=== PATIENT | male | born 1930 | race Caucasian/White ===

== ENCOUNTER → 2016-08-02 | Outpatient (CLI) | payer MEDICARE, OTHER | LOC: LAB 10:05 | PROVIDERS: ATTEND Urology | DX: C61 Malignant neoplasm of prostate (principal); R33.9 Retention of urine, unspecified | CPT/HCPCS: 36415; 84153 ==

== ENCOUNTER 2016-09-08 07:39 | Inpatient (IN) | payer MEDICARE, OTHER ==
[2016-09-08] VITALS (38 sets, daily range): BP systolic 39–97; BP diastolic 30–53
[~2016-09-08] VITALS: Ht 177.8 cm; Wt 92.0 kg
[2016-09-08] MEDS ORDERED: HYDROmorphone 1 MG/ML (DILAUDID) SYRINGE IM ONE (08:10)
[2016-09-08] MEDS ORDERED: LIDOCAINE JELLY 2% (XYLOCAINE) 30 ML TUBE TOP ONE (08:10)
[2016-09-08] MEDS ORDERED: PROMETHAZINE 25 MG/ML (PHENERGAN) 1 ML VIAL IM ONE (08:10)
[2016-09-08 09:34] LABS: MEAN CORPUSCULAR VOLUME 91 FL (80-100); MEAN PLATELET VOLUME 8.3 FL (6.0-9.5); PLATELET COUNT 104 10^3uL (150-450)
[2016-09-08 09:46] LABS: ANION GAP 16.5 MEQ/L (3-15); CALCULATED IONIZED CALCIUM 4.6 mg/dL (3.8-4.6); TOTAL PROTEIN 7.2 g/dL (6.4-8.5)
[2016-09-08 09:51] LABS: WHITE BLOOD COUNT 0.81 10^3uL (4.0-11.0)
[2016-09-08 09:52] LABS: BAND NEUTROPHILS % 11 % (0-6); EOSINOPHILS % 0 % (0-4); LYMPHOCYTES # 0.1 #; MONOCYTES % 2 % (3-11); RBC MORPH NORMAL (NORMAL); SEGMENTED NEUTROPHILS % 70 % (51-67); TOTAL CELLS COUNTED 100
[2016-09-08] MEDS ORDERED: NS IV 500 ML 500 ML IV SCH (12:20)
[2016-09-08] MEDS ORDERED: SODIUM CHLORIDE FLUSH 10 ML SYR IV PRN (12:20)
[2016-09-08] MEDS ORDERED: SODIUM CHLORIDE FLUSH 3 ML SYR IV ONE (12:20)
[2016-09-08 16:32] LABS: MEAN CORPUSCULAR HGB CONC 32.1 g/dL (31.0-37.0); MEAN CORPUSCULAR VOLUME 93 FL (80-100); MEAN PLATELET VOLUME 9.6 FL (6.0-9.5); PLATELET COUNT 109 10^3uL (150-450); WHITE BLOOD COUNT 5.02 10^3uL (4.0-11.0)
[2016-09-08 16:33] LABS: ANION GAP 21.7 MEQ/L (3-15); BUN/CREATININE RATIO 14 (10-20)
[2016-09-08 16:44] LABS: MEAN CORPUSCULAR HEMOGLOBIN 29.8 PG (26.0-34.0)
[2016-09-08] MEDS ORDERED: DEXTROSE 50% 25 GM/50 ML SYRINGE IV ONE (16:45)
[2016-09-08 16:48] LABS: ANISOCYTOSIS SLIGHT; BAND NEUTROPHILS % 16 % (0-6); EOSINOPHILS % 0 % (0-4); LYMPHOCYTES # 0.5 #; MONOCYTES # 0.1 #; MONOCYTES % 1 % (3-11); RBC MORPH SEE REFERENCE (NORMAL); SEGMENTED NEUTROPHILS % 73 % (51-67); TOTAL CELLS COUNTED 100; TOXIC GRANULATION/VACUOLAZATIO SLIGHT
[2016-09-08] MEDS ORDERED: NALOXONE 0.4 MG/ML (NARCAN) 1 ML VIAL IV ONE ×2 (17:00→18:55)
[2016-09-08] MEDS ORDERED: D5 NS IV 1,000 ML IV SCH (17:00)
[2016-09-08] MEDS ORDERED: VANCOMYCIN 1,000 MG in SODIUM CHLORIDE 250 ML IV ONE (18:00)
[2016-09-08 18:08] LABS: ABG OXYGEN SATURATION 93 % (95-98); ABG PCO2 24 mmHg (35-45); ABG PH 7.24 (7.35-7.45); ABG PO2 78 mmHg (80-105)
[2016-09-08] MEDS ORDERED: PIPERACILLIN/TAZOBACTAM 3.375 GM in SODIUM CHLORIDE 100 ML IV SCH (18:50)
[2016-09-08] MEDS ORDERED: LEVOFLOXACIN 750 MG/150 ML IV 150 ML IV SCH (18:50)
[2016-09-08] MEDS ORDERED: VANCOMYCIN PHARMACY PROTOCOL IV SCH ×2 (18:50)
[2016-09-08] MEDS ORDERED: DOPamine DRIP 250 ML IV ONE (18:56)
[2016-09-08] MEDS ORDERED: D5 1/2 NS IV 1,000 ML IV SCH (18:56)
[2016-09-08] MEDS ORDERED: ONDANSETRON 2 MG/ML (Z0FRAN) 2 ML VIAL IV PRN (19:00)
[2016-09-08] MEDS ORDERED: DEXTROSE ORAL GEL (GLUTOSE 40%) 15 GM TUBE PO PRN (19:00)
[2016-09-08] MEDS ORDERED: DEXTROSE 50% 25 GM/50 ML SYRINGE IV PRN (19:00)
[2016-09-08] MEDS ORDERED: PROMETHAZINE HCL INJ 12.5 MG in SODIUM CHLORIDE 25 ML IV PRN (19:00)
[2016-09-08] MEDS ORDERED: GLUCAGON EMERGENCY 1 MG/KIT IM PRN (19:00)
[2016-09-08] MEDS ORDERED: DEXTROSE 50% 25 GM/50 ML SYRINGE ONE (19:01)
[2016-09-08] MEDS: DOPamine DRIP 250 ML IV PRN ×2 (19:02→23:20)
[2016-09-08] MEDS ORDERED: SUCCINYLCHOLINE 20 MG/ML 10 ML VIAL ONE ×2 (19:24→19:29)
[2016-09-08 19:27] LABS: MAGNESIUM* 1.9 mg/dL (1.6-2.3)
[2016-09-08] MEDS ORDERED: MIDAZOLAM 2 MG/2 ML (VERSED) VIAL ONE (19:29)
[2016-09-08] MEDS ORDERED: NS IV 500 ML 500 ML ONE (19:36)
[2016-09-08] MEDS ORDERED: PIPERACILLIN/TAZOBACTAM 3.375 GM (ZOSYN) VIAL IV ONE (20:07)
[2016-09-08] MEDS ORDERED: SODIUM CHLORIDE 0 ML ONE (20:08)
[2016-09-08 20:20] LABS: ALBUMIN 2.4 g/dL (3.4-5.0); ANION GAP 20.5 MEQ/L (3-15); MAGNESIUM* 1.7 mg/dL (1.6-2.3); PHOSPHORUS 3.6 mg/dL (2.4-4.9)
[2016-09-08] MEDS ORDERED: SODIUM CHLORIDE IV PRN (20:20)
[2016-09-08] MEDS ORDERED: MIDAZOLAM IV PRN (20:20)
[2016-09-08] MEDS ORDERED: FLUCONAZOLE 400 MG/200 ML 200 ML IV ONE (20:20)
[2016-09-08] MEDS ORDERED: D5W IV SCH (20:25)
[2016-09-08] MEDS ORDERED: SODIUM BICARB IV SCH (20:25)
[2016-09-08] MEDS ORDERED: SODIUM BICARBONATE 8.4% 50 MEQ/50 ML SYRINGE ONE (20:29)
[2016-09-08] MEDS ORDERED: D5W 1000 ML 1,000 ML IV ONE (20:29)
[2016-09-08] MEDS ORDERED: SODIUM BICARBONATE 8.4% 50 MEQ/50 ML VIAL ONE (20:33)
[2016-09-08] MEDS ORDERED: PIPERACILLIN/TAZOBACTAM 3.375 GM in SODIUM CHLORIDE 50 ML IV ONE (20:45)
[2016-09-08] MEDS ORDERED: VANCOMYCIN IV SCH (21:15)
[2016-09-08] MEDS ORDERED: SODIUM CHLORIDE IV SCH (21:15)
[2016-09-08] MEDS ORDERED: COMPOUNDED BY PHARMACY IV PRN (21:20)
[2016-09-08 21:48] LABS: ABG PCO2 28 mmHg (35-45); ABG PH 7.21 (7.35-7.45); ABG PO2 76 mmHg (80-105)
[2016-09-08 21:49] LABS: ABG OXYGEN SATURATION 92 % (95-98); ARTERIAL BLOOD GAS VENT MODE SIMV
[2016-09-08] MEDS: NOREPINEPHRINE 4 MG in D5W (IVPB) 250 ML IV PRN (22:00)
[2016-09-09] VITALS (50 sets, daily range): BP systolic 62–106; BP diastolic 37–62
[2016-09-09 00:43] LABS: ALBUMIN 2.6 g/dL (3.4-5.0); ANION GAP 20.2 MEQ/L (3-15); PHOSPHORUS 4.2 mg/dL (2.4-4.9)
[2016-09-09] MEDS ORDERED: NS IV 500 ML 500 ML ONE (01:22)
[2016-09-09] MEDS: NOREPINEPHRINE 4 MG in D5W (IVPB) 250 ML IV PRN ×7 (02:10→23:03)
[2016-09-09] MEDS: DOPamine DRIP 250 ML IV PRN ×5 (03:45→22:48)
[2016-09-09 05:59] LABS: MEAN CORPUSCULAR HEMOGLOBIN 30.3 PG (26.0-34.0); MEAN CORPUSCULAR HGB CONC 33.4 g/dL (31.0-37.0); MEAN CORPUSCULAR VOLUME 91 FL (80-100); MEAN PLATELET VOLUME 10.1 FL (6.0-9.5); PLATELET COUNT 102 10^3uL (150-450); WHITE BLOOD COUNT 13.53 10^3uL (4.0-11.0)
[2016-09-09] MEDS: PIPERACILLIN/TAZOBACTAM 3.375 GM in SODIUM CHLORIDE 100 ML IV SCH ×3 (06:03→22:49)
[2016-09-09 06:11] LABS: BAND NEUTROPHILS % 11 % (0-6); EOSINOPHILS % 0 % (0-4); LYMPHOCYTES # 1.4 #; MONOCYTES % 8 % (3-11); RBC MORPH NORMAL (NORMAL); SEGMENTED NEUTROPHILS % 71 % (51-67); TOTAL CELLS COUNTED 100
[2016-09-09 06:23] LABS: ALBUMIN 2.4 g/dL (3.4-5.0); ANION GAP 17.2 MEQ/L (3-15); CALCULATED IONIZED CALCIUM 4.2 mg/dL (3.8-4.6); TOTAL PROTEIN 5.1 g/dL (6.4-8.5)
[2016-09-09 06:36] LABS: ABG OXYGEN SATURATION 95 % (95-98); ABG PCO2 27 mmHg (35-45); ABG PH 7.31 (7.35-7.45); ABG PO2 81 mmHg (80-105)
[2016-09-09 06:37] LABS: ARTERIAL BLOOD GAS VENT MODE SIMV
[2016-09-09] MEDS ORDERED: ACETAMINOPHEN 650 MG SUPP (TYLENOL) PR PRN (06:55)
[2016-09-09] MEDS ORDERED: D5 1/2 NS IV 1,000 ML IV ONE (07:19)
[2016-09-09] MEDS ORDERED: ARTIFICIAL TEARS (REFRESH) OPHTHALMIC DROPS OD PRN (08:45)
[2016-09-09] MEDS: VASOPRESSIN IV SCH ×2 (10:12→21:23)
[2016-09-09] MEDS: SODIUM CHLORIDE IV SCH ×2 (10:12→21:23)
[2016-09-09 12:28] LABS: ALBUMIN 2.2 g/dL (3.4-5.0); ANION GAP 16.1 MEQ/L (3-15); PHOSPHORUS 3.8 mg/dL (2.4-4.9)
[2016-09-09] MEDS ORDERED: VANCOMYCIN COMPOUNDED BY PHARMACY IV SCH (18:00)
[2016-09-09] MEDS ORDERED: VANCOMYCIN 750 MG in NORMAL SALINE 150 ML IV SCH (18:00)
[2016-09-09 18:08] LABS: MEAN CORPUSCULAR HEMOGLOBIN 30.9 PG (26.0-34.0); MEAN CORPUSCULAR HGB CONC 34.7 g/dL (31.0-37.0); MEAN CORPUSCULAR VOLUME 89 FL (80-100); MEAN PLATELET VOLUME 10.5 FL (6.0-9.5); PLATELET COUNT 88 10^3uL (150-450); WHITE BLOOD COUNT 20.82 10^3uL (4.0-11.0)
[2016-09-09 18:16] LABS: ALBUMIN 2.3 g/dL (3.4-5.0); ANION GAP 18.2 MEQ/L (3-15); CALCULATED IONIZED CALCIUM 3.9 mg/dL (3.8-4.6)
[2016-09-09 18:17] LABS: BAND NEUTROPHILS % 35 % (0-6); EOSINOPHILS % 1 % (0-4); MONOCYTES # 0.6 #; MONOCYTES % 3 % (3-11); SEGMENTED NEUTROPHILS % 56 % (51-67); TOTAL CELLS COUNTED 100
[2016-09-09 18:18] LABS: NUCLEATED RED BLOOD CELLS 1; RBC MORPH SEE REFERENCE (NORMAL); TOXIC GRANULATION/VACUOLAZATIO MODERATE
[2016-09-10] VITALS (20 sets, daily range): BP systolic 74–97; BP diastolic 49–58
[2016-09-10] MEDS: NOREPINEPHRINE 4 MG in D5W (IVPB) 250 ML IV PRN ×7 (01:16→15:29)
[2016-09-10] MEDS: VASOPRESSIN IV SCH ×3 (01:42→11:34)
[2016-09-10] MEDS: SODIUM CHLORIDE IV SCH ×3 (01:42→11:34)
[2016-09-10] MEDS: DOPamine DRIP 250 ML IV PRN ×4 (02:34→14:43)
[2016-09-10] MEDS: PIPERACILLIN/TAZOBACTAM 3.375 GM in SODIUM CHLORIDE 100 ML IV SCH ×2 (05:42→13:10)
[2016-09-10 06:21] LABS: MEAN CORPUSCULAR HEMOGLOBIN 30.3 PG (26.0-34.0); MEAN CORPUSCULAR HGB CONC 34.1 g/dL (31.0-37.0); MEAN CORPUSCULAR VOLUME 89 FL (80-100); MEAN PLATELET VOLUME 11.2 FL (6.0-9.5); PLATELET COUNT 74 10^3uL (150-450); WHITE BLOOD COUNT 27.41 10^3uL (4.0-11.0)
[2016-09-10 06:40] LABS: ALBUMIN 2.3 g/dL (3.4-5.0); ANION GAP 19.6 MEQ/L (3-15); CALCULATED IONIZED CALCIUM 3.6 mg/dL (3.8-4.6); TOTAL PROTEIN 5.2 g/dL (6.4-8.5)
[2016-09-10 06:48] LABS: BAND NEUTROPHILS % 48 % (0-6); EOSINOPHILS % 0 % (0-4); LYMPHOCYTES # 0.3 #; MONOCYTES # 0.5 #; MONOCYTES % 2 % (3-11); SEGMENTED NEUTROPHILS % 47 % (51-67); TOTAL CELLS COUNTED 100
[2016-09-10 06:49] LABS: RBC MORPH SEE REFERENCE (NORMAL)
[2016-09-10 06:50] LABS: TOXIC GRANULATION/VACUOLAZATIO SLIGHT
[2016-09-10] MEDS ORDERED: NS FLUSH 10 ML PRN IV (10:00)
[2016-09-10] MEDS ORDERED: NS FLUSH 3 ML PRN IV (10:00)
[2016-09-10] MEDS ORDERED: SODIUM CHLORIDE 250 ML IV PRN (11:10)
== END 2016-09-10 15:56 | disposition short-term general hospital (02) | DRG 871 ==
LOC: ED 07:42 → ICU 18:29
PROVIDERS: ADMIT Internal Medicine; ATTEND Internal Medicine
PROC: 5A1945Z Respiratory Ventilation, 24-96 Consecutive Hours (ICD-10-PCS; principal; 2016-09-07)
PROC: 0BH17EZ Insertion of Endotracheal Airway into Trachea, Via Natural or Artificial Opening (ICD-10-PCS; 2016-09-07)
DX: A41.9 Sepsis, unspecified organism (principal); R65.21 Severe sepsis with septic shock; G93.49 Other encephalopathy; K72.00 Acute and subacute hepatic failure without coma; T83.83XA Hemorrhage due to genitourinary prosthetic devices, implants and grafts, initial encounter; N17.9 Acute kidney failure, unspecified; S37.33XA Laceration of urethra, initial encounter; I24.8 Other forms of acute ischemic heart disease; I48.91 Unspecified atrial fibrillation; I25.10 Atherosclerotic heart disease of native coronary artery without angina pectoris; I11.0 Hypertensive heart disease with heart failure; I50.9 Heart failure, unspecified; E16.2 Hypoglycemia, unspecified; W06.XXXA Fall from bed, initial encounter; Z95.0 Presence of cardiac pacemaker; Z95.1 Presence of aortocoronary bypass graft; Z95.2 Presence of prosthetic heart valve; Z85.46 Personal history of malignant neoplasm of prostate
CPT/HCPCS: 31500; 36415; 36569; 36600; 51702; 70450; 71010; 71100; 80048; 80053; 80069; 82550; 82803; 83605; 83735; 84443; 84484; 85025; 85610; 85730; 86140; 87040; 87077; 87150; 87186; 87205; 93005; 94002; 94003; 96361; 96365; 96372; 96375; 99285; 99291

== ENCOUNTER → 2016-09-10 | Outpatient (CLI) | payer MEDICARE, OTHER | LOC: EMS 16:00 | PROVIDERS: ATTEND Family Medicine | DX: A41.9 Sepsis, unspecified organism (principal); J96.90 Respiratory failure, unspecified, unspecified whether with hypoxia or hypercapnia ==